=== PATIENT | female | born 1970 | race Caucasian/White ===

== ENCOUNTER 2024-03-14 19:52 | Emergency (ER) | payer MEDICAID, OTHER ==
[~2024-03-14] VITALS: Ht 165.1 cm; Wt 90.7 kg
[2024-03-14 19:52] VITALS: BP_SYST 137; PULSE 86; RESP 20; TEMP 98.8; O2SAT 96
[2024-03-14] MEDS ORDERED: DIPH25CA83 PO (20:07)
[2024-03-14] MEDS ORDERED: PRED20TA PO (20:07)
[2024-03-14 20:35] VITALS: BP_SYST 137; PULSE 83; RESP 20; TEMP 98.8; O2SAT 96
== END 2024-03-14 20:35 | disposition home or self-care (01) ==
LOC: SED 19:52
DX: L50.9 Urticaria, unspecified (principal); T50.2X5A Adverse effect of carbonic-anhydrase inhibitors, benzothiadiazides and other diuretics, initial encounter; I10 Essential (primary) hypertension; Z79.899 Other long term (current) drug therapy; Y92.89 Other specified places as the place of occurrence of the external cause
CPT/HCPCS: 99283